=== PATIENT | male | born 1970 | race Caucasian/White ===

== ENCOUNTER 2024-04-07 10:44 | Emergency (ER) | payer OTHER ==
[2024-04-07] MEDS ORDERED: ONDANSETRON 4 MG/2 ML VIAL ONE (11:06)
[2024-04-07] MEDS ORDERED: MORPHINE 4 MG/ML SYR ONE (11:06)
[2024-04-07] MEDS ORDERED: FAMOTIDINE 20 MG/2 ML VIAL IV ONE (11:06)
[2024-04-07 11:23] LABS: Absolute Eosinophils 0.2 K/uL (0-0.5); Absolute Lymphocytes (CBC) 2.4 K/uL (0.7-4.9); Absolute Monocytes 0.8 K/uL (0.1-1.3); Basophils % 0.3 % (0-1.3); Eosinophils % 2.7 % (0-4.4); Hematocrit 41.7 % (39.6-49.0); Hemoglobin 14.4 g/dL (13.6-17.9); Lymphocytes % 28.7 % (15.3-44.8); MCH 32.2 pg (27.0-35.0); MCHC 34.4 g/dL (32.0-36.0); MCV 93.5 fL (80-100); MPV 7.2 fL (7.6-11.3); Monocytes % 9.1 % (3.3-12.3); Neutrophils % 59.2 % (41.7-73.7); Nucleated Red Blood Cells % 0.1 % (0-0); Platelets 245 thou/uL (152-406); RBC Red Blood Cell Count 4.46 M/uL (4.33-5.43); Red Cell Distribution Width 13.5 % (12.1-15.2)
[2024-04-07 11:25] LABS: Specific Gravity 1.012 (1.005-1.030); Urine Bilirubin NEGATIVE (Negative); Urine Blood Negative (Negative); Urine Clarity Clear (Clear); Urine Color Yellow (Yellow); Urine Glucose NEGATIVE (Negative); Urine Ketones NEGATIVE (Negative); Urine Microscopic Reflex YN NO UMIC; Urine Nitrite NEGATIVE (Negative); Urine Protein NEGATIVE (Negative); Urine Urobilinogen Normal (Normal); Urine pH 5.5 (5.0-7.0)
[2024-04-07 11:45] LABS: Albumin 3.9 g/dL (3.4-5.0); Albumin/Globulin Ratio 0.9 (1.1-1.8); Bilirubin Total 0.7 mg/dL (0.2-1.0); Globulin 4.4 g/dL (2.3-3.5); Protein, Total 8.3 g/dL (6.4-8.2)
--- NOTE | 2024-04-07 12:09 | RAD REPORT ---
EXAMINATION: CT ABDOMEN AND PELVIS WITH CONTRAST CLINICAL INDICATION: Abdominal pain TECHNIQUE: CT abdomen and pelvis was performed, after the administration of 100 cc Isovue-300.. Sagit wilson and coronal reconstructions were obtained. One or more of the following dose reduction techniques were used: Automated exposure control, adjustment of the mA and kV according to patient si ze, and iterative reconstruction. Unless otherwise specified, incidental findings do not require dedicated imaging follow-up. [id number]. Oral contrast was not given which limits evaluation of bowel and appendix. COMPARISON: .2021 FINDINGS: Mild fatty liver. The spleen, pancreas, adrenals and right kidney unremarkable. Small area of cortical thinning left kidney. The appendix is borderline enlarged. However there is no stranding within the adjacent fat surroundin g this probably Thickening of the wall the proximal sigmoid colon. Moderate stranding within the adjacent fat with sm all amount of ill-defined fluid. No abscess. No free air. : IMPRESSION: Moderate sigmoid diverticulitis. No perforation
--- NOTE | 2024-04-07 12:19 | ER ---
Nurse's Notes [facility] Name: Meet Hernandez Age: 54 yrs Sex: Male : 1970 Arrival Date: 04/07/2024 Time: 10:44 Bed 4 Private MD: Diagnosis: Diverticulitis of large intestine without perforation or abscess without bleeding Presentation: 04/07 11:00 Chief complaint: Patient states: LLQ pain since Saturday. Coronavirus screen: At this iw time, the client does not indicate any symptoms associated with coronavirus-19. Ebola Screen: No symptoms or risks identified at this time. Initial Sepsis Screen: Does the patient meet any 2 criteria? No. Patient's initial sepsis screen is negative. Does the patient have a suspected source of infection? No. Patient's initial sepsis screen is negative. Risk Assessment: Do you want to hurt yourself or someone else? Patient reports no desire to harm self or others. Onset of symptoms was April 05, 2024. 11:00 Method Of Arrival: Ambulatory iw 11:00 Acuity: NATALIE 3 iw Historical: - Allergies: 11:01 No Known Allergies; iw - PMHx: 11:01 heart skips a beat; Diverticulitis; kidney stones; Atrial fibrillation; Hypertensive iw disorder; - PSHx: 11:01 liver biopsy; iw - Immunization history:: Adult Immunizations up to date. - Infectious Disease History:: Denies. - Social history:: Smoking status: Patient denies any tobacco usage or history of. Screenin:16 [facility] ED Fall Risk Assessment (Adult) History of falling in the last 3 months, ld1 including since admission No falls in past 3 months (0 pts) Confusion or Disorientation No (0 pts) Intoxicated or Sedated No (0 pts) Impaired Gait No (0 pts) Mobility Assist Device Used No (0 pt) Altered Elimination No (0 pt) Score/Fall Risk Level 0 - 2 = Low Risk Oriented to surroundings, Hourly rounding (assess needs \T\ fall precautionary measures) done. Abuse screen: Denies threats or abuse. Denies injuries from another. Nutritional screening: No deficits noted. Tuberculosis screening: No symptoms or risk factors identified. Assessment: 11:16 General: Appears in no apparent distress. comfortable, Behavior is calm, cooperative, ld1 appropriate for age. Pain: Complains of pain in left lower quadrant Pain does not radiate. Pain currently is 8 out of 10 on a pain scale. Quality of pain is described as throbbing, Pain began suddenly, Is continuous. Neuro: Level of Consciousness is awake, alert, obeys commands, Oriented to person, place, time, situation. Cardiovascular: Capillary refill < 3 seconds Patient's skin is warm and dry. Respiratory: Airway is patent Respiratory effort is even, unlabored. GI: Abdomen is round non-distended, Bowel sounds present X 4 quads. Abd is soft Abd is non tender Reports lower abdominal pain. : No signs and/or symptoms were reported regarding the genitourinary system. EENT: No signs and/or symptoms were reported regarding the EENT system. Derm: No signs and/or symptoms reported regarding the dermatologic system. Musculoskeletal: No signs and/or symptoms reported regarding the musculoskeletal system. Vital Signs: 11:00 BP 152 / 90; Pulse 72; Resp 19; Temp 97.6; Pulse Ox 96% ; Weight 86.18 kg; Height 5 ft. iw 6 in. ; Pain 8/10; 11:16 BP 130 / 88; Pulse 69; Resp 18; Pulse Ox 95% on R/A; ld1 11:16 Pain 9/10; ld1 12:22 BP 137 / 79; Pulse 64; Resp 15; Pulse Ox 99% ; ko1 11:00 Body Mass Index 30.67 (86.18 kg, 167.64 cm) iw 11:00 Pain Scale: Adult iw 11:16 Pain Scale: Adult ld1 ED Course: 10:47 Patient arrived in ED. al6 10:49 Quinton Lemon DO is Attending Physician. ms3 11:01 Triage completed. iw 11:02 Arm band placed on. iw 11:16 Jeri Lemon, RN is Primary Nurse. ld1 11:16 Patient has correct armband on for positive identification. Placed in gown. Bed in low ld1 position. Call light in reach. Side rails up X2. Pulse ox on. NIBP on. Door closed. Noise minimized. Warm blanket given. 11:16 Inserted saline lock: 20 gauge in right antecubital area, using aseptic technique. ld1 Blood collected. Flushed with 10 mL NS. 11:16 No provider procedures requiring assistance completed. ld1 11:19 CBC with Diff Sent. ko1 11:19 CMP Sent. ko1 11:19 Urinalysis w/ reflexes Sent. ko1 11:20 Provided Education on: meds. ko1 11:20 Initial lab(s) drawn, by me, sent to lab. Urine collected: clean catch specimen, clear. ko1 12:01 CT Abd/Pelvis - IV Contrast Only In Process Unspecified. EDMS 12:18 Niko Bahena DO is Referral Physician. ms3 12:54 IV discontinued, intact, bleeding controlled, No redness/swelling at site. Pressure ko1 dressing applied. Administered Medications: 11:19 Drug: Famotidine IVP 20 mg IVP once; dilute with 10 mL 0.9% NaCl; give over 2 minutes ko1 Route: IVP; Site: right antecubital; 11:35 Follow up: Response: No adverse reaction ko1 11:19 Drug: Ondansetron IVP 4 mg IVP once; over 2 minutes Route: IVP; Site: right antecubital;ko1 11:35 Follow up: Response: No adverse reaction ko1 11:19 Drug: morphine IVP or IV 4 mg IVP once over 4 mins Route: IVP; Infused Over: 4 mins; ko1 Site: right antecubital; 11:35 Follow up: Response: No adverse reaction ko1 12:25 Drug: HYDROcodone-acetaminophen PO 5 mg-325 mg 1 tabs PO once Route: PO; ko1 12:55 Follow up: Response: No adverse reaction ko1 Medication: 11:16 VIS not applicable for this client. ld1 Outcome: 12:19 Discharge ordered by MD. ms3 13:15 Discharged to home ambulatory, with family, iw 13:15 Condition: good 13:15 Discharge instructions given to patient, family, Instructed on discharge instructions, follow up and referral plans. medication usage, Demonstrated understanding of instructions, follow-up care, medications, Prescriptions given X 1, 13:15 Patient left the ED. iw Signatures: Dispatcher [employer] EDArianna Weaver RN RN iw Sims, Marcus, DO DO ms3 Jeri Lemon RN RN ld1 Marimar Roberts RN RN ko1 Shantell Puga6
--- NOTE | 2024-04-07 12:19 | EDPHYS ---
Physician Documentation [facility] Name: Meet Hernandez Age: 54 yrs Sex: Male : 1970 Arrival Date: 04/07/2024 Time: 10:44 Bed 4 Private MD: ED Physician Quinton Lemon HPI: 04/07 11:01 This 54 yrs old Male presents to ER via Ambulatory with complaints of Possible Kidney ms3 Stone, Abdominal Pain. 11:01 54-year-old male with past medical history of diverticulosis, kidney stones, atrial ms3 fibrillation, hypertension presents to the emergency department for left lower quadrant abdominal pain that began on Saturday. Patient states the pain radiates to his back and he rates the pain an 8/10. He has taken Tylenol with mild relief of his pain. He endorses chills; however, denies nausea, vomiting, diarrhea, chest pain, shortness of breath. Historical: - Allergies: 11: No Known Allergies; iw - PMHx: 11: heart skips a beat; Diverticulitis; kidney stones; Atrial fibrillation; Hypertensive iw disorder; - PSHx: 11: liver biopsy; iw - Immunization history:: Adult Immunizations up to date. - Infectious Disease History:: Denies. - Social history:: Smoking status: Patient denies any tobacco usage or history of. ROS: 11:01 Constitutional: Negative for fever, and chills. Cardiovascular: Negative for chest ms3 pain, and palpitations. Respiratory: Negative for shortness of breath, cough, wheezing, and pleuritic chest pain, 11: MS/Extremity: Negative for injury and deformity, Skin: Negative for injury, rash, and discoloration, 11:01 Abdomen/GI: Positive for abdominal pain, Negative for nausea, vomiting, and diarrhea, Exam: 11:01 Constitutional: This is a well developed, well nourished patient who is awake, alert, ms3 and in no acute distress. Cardiovascular: Regular rate and rhythm with a normal S1 and S2. No gallops, murmurs, or rubs. Normal PMI, no JVD. No pulse deficits. Respiratory: Lungs have equal breath sounds bilaterally, clear to auscultation and percussion. No rales, rhonchi or wheezes noted. No increased work of breathing, no retractions or nasal flaring. 11:01 Abdomen/GI: Inspection: abdomen appears normal, Bowel sounds: normal, Palpation: moderate abdominal tenderness, in the left lower quadrant, Vital Signs: 11:00 BP 152 / 90; Pulse 72; Resp 19; Temp 97.6; Pulse Ox 96% ; Weight 86.18 kg; Height 5 ft. iw 6 in. ; Pain 8/10; 11:16 BP 130 / 88; Pulse 69; Resp 18; Pulse Ox 95% on R/A; ld1 11:16 Pain 9/10; ld1 12:22 BP 137 / 79; Pulse 64; Resp 15; Pulse Ox 99% ; ko1 11:00 Body Mass Index 30.67 (86.18 kg, 167.64 cm) iw 11:00 Pain Scale: Adult iw 11:16 Pain Scale: Adult ld1 MDM: 11:00 Medical Screening Exam initiated ms3 11:01 Differential diagnosis: bowel obstruction, diverticulitis, non-specific abd pain, ms3 Kidney stone. 15:48 Data reviewed: vital signs, nurses notes, lab test result(s), radiologic studies, and ms3 as a result, I will discharge patient. I considered the following discharge prescriptions or medication management in the emergency department Medications were administered in the Emergency Department. See MAR. Counseling: I had a detailed discussion with the patient and/or guardian regarding the historical points, exam findings, and any diagnostic results supporting the discharge/admit diagnosis, lab results, radiology results, the need for outpatient follow up, to return to the emergency department if symptoms worsen or persist or if there are any questions or concerns that arise at home. Special discussion: Based on the patient's Hx, exam, and Dx evaluation, there is no indication for emergent surgery or inpatient Tx. It is understood by the patient/guardian that if the Sx's persist or worsen they need to return immediately for re-evaluation. ED course: Discussed with patient CT findings of sigmoid diverticulitis. White blood count normal. Patient is afebrile, tolerating p.o. Patient to follow-up with primary care physician 2 to 3 days. Patient understands and agrees with plan. All questions were answered. Patient given prescription for Augmentin. Return precautions discussed include worsening symptoms, or any other concerns. On reevaluation patient is improved, alert and oriented x 4, in no apparent distress, nontoxic-appearing, speaking full sentences, nonacute abdomen.. 04/07 10:50 Order name: CBC with Diff; Complete Time: 12:17 ms3 04/07 10:50 Order name: CMP; Complete Time: 12:17 ms3 04/07 10:50 Order name: Urinalysis w/ reflexes; Complete Time: 12:17 ms3 04/07 11:00 Order name: CT Abd/Pelvis - IV Contrast Only; Complete Time: 12:17 ms3 04/07 10:50 Order name: IV Saline Lock; Complete Time: 11:19 ms3 04/07 10:50 Order name: Labs collected and sent; Complete Time: 11:19 ms3 Administered Medications: 11:19 Drug: Famotidine IVP 20 mg IVP once; dilute with 10 mL 0.9% NaCl; give over 2 minutes ko1 Route: IVP; Site: right antecubital; 11:35 Follow up: Response: No adverse reaction ko1 11:19 Drug: Ondansetron IVP 4 mg IVP once; over 2 minutes Route: IVP; Site: right antecubital;ko1 11:35 Follow up: Response: No adverse reaction ko1 11:19 Drug: morphine IVP or IV 4 mg IVP once over 4 mins Route: IVP; Infused Over: 4 mins; ko1 Site: right antecubital; 11:35 Follow up: Response: No adverse reaction ko1 12:25 Drug: HYDROcodone-acetaminophen PO 5 mg-325 mg 1 tabs PO once Route: PO; ko1 12:55 Follow up: Response: No adverse reaction ko1 Disposition Summary: 04/07/24 12:19 Discharge Ordered Notes: Location: Home ms3 Condition: Stable ms3 Diagnosis - Diverticulitis of large intestine without perforation or abscess without bleeding ms3 Followup: ms3 - With: Niko Bahena, DO - When: 2 - 3 days - Reason: Re-evaluation by your physician Discharge Instructions: - Discharge Summary Sheet ms3 - High-Fiber Eating Plan ms3 - Diverticulitis ms3 Forms: - Medication Reconciliation Form ms3 - Antibiotic Education ms3 - Prescription Opioid Use ms3 - Patient Portal Instructions ms3 - Leadership Thank You Letter ms3 Prescriptions: - Augmentin 875-125 mg Oral Tablet - take 1 tablet ORAL route every 12 hours for 10 days; 20 tablet; Refills: 0, ms3 Product Selection Permitted Signatures: Dispatcher [employer] Arianna Gonzalez, RN RN iw Quinton Lemon DO DO ms3 Marimar Roberts, RN RN ko1
[2024-04-07] MEDS ORDERED: HYDROCODONE/APAP 5/325 MG TAB ONE (12:26)
[2024-04-07 14:27] VITALS: TEMP 97.6
[2024-04-07 14:29] VITALS: BP 137/79; O2SAT 99
== END 2024-04-07 13:15 | disposition home or self-care (01) ==
LOC: ER 10:44
DX: K57.32 Diverticulitis of large intestine without perforation or abscess without bleeding (principal); Z87.442 Personal history of urinary calculi
CPT/HCPCS: 85025; 36415; 81003; 80053; 74177; Q9967; J2405